=== PATIENT | female | born 1950 | race African-American/Black ===

== ENCOUNTER 2017-11-04 04:17 | Observation (INO) | payer MEDICARE, MEDICAID ==
[2017-11-04 04:57] LABS: #Lymphocytes 0.3 thou/uL (1.20-3.40); #Monocytes 0.2 thou/uL (0.11-0.59); #Neutrophils 3.3 thou/uL (1.40-6.50); %Basophils 0.2 % (0.0-1.0); %Eosinophils 0.7 % (0.0-10.0); %Lymphocytes 7.1 % (21.0-51.0); %Monocytes 5.9 % (0.0-10.0); %Neutrophils 86.2 % (42.0-75.0); Hemoglobin 10.8 g/dL (12.0-16.0); Mean Corpuscular HGB CONC 31.6 g/dL (32.0-36.0); Mean Corpuscular Hemoglobin 25.4 pg (27.0-31.0); Mean Corpuscular Volume 80.2 fl (81.0-99.0); Mean Platelet Volume 8.5 fL (7.4-10.4); Platelet Count 147 thou/uL (130-400); RBC Distribution Width 16.1 % (11.5-14.5); Red Blood Cell (RBC) Count 4.24 mill/uL (4.20-5.40); White Blood Cell (WBC) Count 3.9 thou/uL (4.8-10.8)
[2017-11-04 05:19] LABS: ALT (SGPT) 11 U/L (8-55); AST (SGOT) 11 U/L (5-34); Albumin 4.3 g/dL (3.4-4.8); Alkaline Phosphatase 181 U/L (40-150); Anion Gap 13 mmol/L (10-20); BUN (Urea Nitrogen) 54 mg/dL (9.8-20.1); Bilirubin, Total 0.8 mg/dL (0.2-1.2); Calc. Creatinine Clearance 0 mL/min (70-130); Calcium 9.3 mg/dL (7.8-10.44); Carbon Dioxide 26 mmol/L (23-31); Chloride 104 mmol/L (98-107); Estimated GFR-MDRD 5; Globulin 3.2 g/dL (2.4-3.5); Potassium 4.2 mmol/L (3.5-5.1); Protein, Total 7.5 g/dL (6.0-8.3); Sodium 139 mmol/L (136-145)
[2017-11-04 05:23] LABS: Glucose 48 mg/dL (80-115)
[2017-11-04 06:01] LABS: CKMB 2.6 ng/mL (0-6.6); Troponin I 0.059 ng/mL (< 0.028)
[2017-11-04] MEDS ORDERED: Dextrose 50% Abboject 50 ML SYRINGE ONE ×3 (06:21→09:41)
[2017-11-04] MEDS ORDERED: cloNIDine 0.3 MG TAB PO ONE (07:30)
[2017-11-04] MEDS ORDERED: Amlodipine 10 MG TAB PO PRN (07:31)
--- NOTE | 2017-11-04 07:32 | RAD ---
2 VIEWS CHEST: Date: 11/04/17 COMPARISON: 09/20/13. HISTORY: CHF. Patient is a dialysis patient. Dyspnea. FINDINGS: Two views of the chest show a cardiomediastinal silhouette which is upper limits of normal in size. M ultifocal opacities are seen in the lungs which may represent pulmonary edema or multifocal infiltrat es. A stent is seen in the right subclavian region. The previously seen MediPort has been removed. A stent is also seen in the proximal right arm. IMPRESSION: Multifocal opacities may represent pulmonary edema or multifocal infiltrates. POS: [facility]
[2017-11-04] MEDS ORDERED: cloNIDine 0.1 MG TAB ONE (07:38)
--- NOTE | 2017-11-04 08:28 | HP ---
PRIMARY CARE PHYSICIAN: Bria Wilson M.D. CHIEF COMPLAINT: Shortness of breath and low blood sugar. HISTORY OF PRESENT ILLNESS: Ms. Porter is a very pleasant 67-year-old female that has a history of e nd-stage renal disease, diabetes mellitus as well as invasive ductal carcinoma of the breast. She wa s in dialysis yesterday when her blood sugar dropped in the 40s and the dialysis was stopped and she was sent over to the emergency room to have this treated. She was given an amp of D50 and her blood sugars improved and she was then sent home. However, she was unable to go back to dialysis and as a result she started getting short of breath later on that day and had to come back to the emergency ro om once again where she was found to be volume overloaded and her blood sugar again was low and for t his reason she is being placed in observation. Currently, she does not have any complaints. She say s that her blood sugars usually had been okay, but lately they have been running lower. She does adm it that she is not sure how much to eat because she is always afraid that she going to get either vol ume overloaded or have trouble with her dialysis. She says she has lost about 10 pounds in the last couple of months. She also takes glyburide and she says she has been on this "for a long time" ever since she has been diabetic and that has been for at least 20 years or more. She denies feeling sick , such as fevers, chills, nausea or vomiting, but says she has had a cough and shortness of breath, b ut otherwise she has been okay. REVIEW OF SYSTEMS: CONSTITUTIONAL: She denies any fevers, chills, no night sweats, no weight loss. HEENT: She denies any headaches, no dizziness, no visual changes, no sore throat, rhinorrhea, neck pain, no adenopathy. PULMONARY: No hemoptysis, no cough, no wheezing. CARDIOVASCULAR: She denies any chest pain, no shortness of breath, no PND, no orthopnea. GASTROINTESTINAL: No abdominal pain, no nausea, no vomiting, no change in bowels. GENITOURINARY: No urinary frequency, hematuria, no hes itancy. NEUROLOGIC: No focal weakness, numbness, no seizures. PSYCHIATRIC: No symptoms of anxiety or depression. SKIN AND INTEGUMENT: No skin changes. No rash. PAST MEDICAL HISTORY: Significant for invasive ductal cell carcinoma, end-stage renal disease on hem odialysis, diabetes mellitus type 2, hypertension, and congestive heart failure. PAST SURGICAL HISTORY: She has had left mastectomy, MediPort placed, left oophorectomy, hysterectomy , dialysis catheter placed in the right arm fistula. ALLERGIES: To CODEINE, PENICILLIN, and MORPHINE. SOCIAL HISTORY: She is a nonsmoker and nondrinker. She is , has 5 children. She lives wit h 2 of her daughters. FAMILY HISTORY: No history of any inheritable diseases. CURRENT MEDICATIONS: Include clonidine 0.3 mg daily, minoxidil 2.5 mg daily, alprazolam 0.25 mg twic e a day, Sensipar 60 mg daily, amlodipine 10 mg daily, glyburide 5 mg daily, losartan 100 mg once a d ay, simvastatin 40 mg daily, Renagel 800 mg 3 times a day. PHYSICAL EXAMINATION: GENERAL: She is alert and oriented. She appears to be in no acute distress. VITAL SIGNS: Blood pressure was 223/78, heart rate 86, respiratory rate of 18, temperature is 98.6. HEENT: Her pupils are equal, round, and reactive. Extraocular muscles are intact. Her sclerae are anicteric. Throat: There is no erythema, no exudates. NECK: No adenopathy, no bruits. LUNGS: Clear except for some rales in the left lung martins. No rhonchi. CARDIOVASCULAR: She has a normal S1 and S2. I did not appreciate an S3 or S4. She did have a sligh t grade 2/6 systolic murmur. ABDOMEN: Obese, soft, nontender, and nondistended. Positive bowel sounds. EXTREMITIES: There is no edema. NEUROLOGIC: Neurologically, the exam is nonfocal. LABORATORY DATA AND IMAGING DATA: Sodium is 139, potassium 4.2, chloride is 104, CO2 is 26, BUN 54, creatinine 9.5, glucose is 48, and creatine kinase is 181. Her white blood cell count 3.9, hemoglobi n 10.8, hematocrit is 34, platelet count is 147. She had an EKG which was sinus rhythm. The rate wa s [address] wave changes. Chest x-ray showed some increasing pulmonary vascular ma rkings. ASSESSMENT AND PLAN: This is a pleasant 67-year-old female who presents to the emergency room with v olume overload likely due to incomplete dialysis. She will be placed in observation. Dr. Arizmendi has al ready been contacted and she will be dialyzed early this morning. 1. Hypoglycemia in the setting of diabetes mellitus and end-stage renal disease. The patient has be en on glyburide for years; however, this is not an ideal medication and patient is on dialysis with a dvanced renal insufficiency, we will take her off of glyburide and monitor her blood glucoses. I campos pect that she may only need sliding scale insulin in order to control her blood glucose. She says th at her vision is well enough that she can see letters and numbers and so therefore we will teach her how to use insulin and likely she can be discharged with a sliding scale. 2. Hypertension. Her blood pressure is currently uncontrolled, possibly because she may have missed the medication as she has been in the emergency room off and on for the last 24 hours or so. She guevara s been given clonidine now as well as Procardia and the plan again is for her to go to urgent dialysi s.
[2017-11-04] MEDS ORDERED: Amlodipine 5 MG TAB ONE (08:37)
[2017-11-04] MEDS ORDERED: Ondansetron ODT 4 MG TAB PO PRN (10:20)
[2017-11-04] MEDS ORDERED: Ondansetron HCl/PF 4 MG/2 ML Vial IVP PRN (10:20)
[2017-11-04] MEDS ORDERED: Acetaminophen 325 MG TAB PO PRN ×2 (10:21→10:33)
[2017-11-04] MEDS ORDERED: Dextrose 50% Abboject 50 ML SYRINGE SLOW IVP PRN (10:33)
[2017-11-04] MEDS ORDERED: HumaLOG 300 UNITS/3 ML VIAL SC PRN (10:33)
[2017-11-04] MEDS ORDERED: Dextrose 5% in Water 1,000 ML IV PRN (10:33)
[2017-11-04] MEDS ORDERED: Heparin 5,000 UNITS/ML VIAL SC SCH (10:45)
--- NOTE | 2017-11-04 13:26 | CON ---
DATE OF CONSULTATION: 11/04/2017 SERVICE: Renal Medicine. HISTORY OF PRESENT ILLNESS: Ms. Porter is a 67-year-old black female with known history of end-stage renal disease - on maintenance hemodialysis and admitted for hypoglycemia and shortness of breath. She was also at the ER yesterday for hypoglycemia. However, the hypoglycemia remained persistent, an d for that reason, she is being admitted. She was also found to be in CHF. We are now being consult ed for emergent dialysis. She is currently undergoing hemodialysis. I am at the bedside supervising her dialysis. We are attempting around 3-4 liters of fluid removal. REVIEW OF SYSTEMS: Positive for generalized malaise. Positive for shortness of breath. No nausea, no vomiting, no syncopal episode, no productive cough, no fever or chills. No gross hematuria. No d ysuria, no urinary frequency, no abdominal pain, no headache, no joint pains, no new skin rash. Appe tite and energy level is fair. No diplopia, no sore throat, no fever or chills, no chest pain. MEDICATIONS: Currently on, 1. P.r.n. D50. 2. Insulin, Humalog sliding scale. 3. Zofran 4 mg IV b.i.d. as needed. 4. Amlodipine 10 mg tab once a day. 5. Clonidine 0.3 mg p.o. b.i.d. 6. Minoxidil 2.5 mg tab q.a.m. PAST MEDICAL HISTORY: 1. The patient has history of ESRD - currently on maintenance hemodialysis. 2. Hypertensive nephropathy. 3. Longstanding hypertension. 4. History of chronic anemia from chronic renal disease. 5. History of type 2 diabetes mellitus. 6. Status post CHF. 7. History of ductal cell carcinoma - breast - in remission. PAST SURGICAL HISTORY: 1. Status post left mastectomy. 2. Status post left breast biopsy. 3. Status post MediPort placement. 4. Status post hysterectomy. 5. Status post oophorectomy. 6. Status post dialysis catheter placement. 7. Status post AV fistula placement. ALLERGIES: CODEINE, PENICILLIN, and MORPHINE. TRAUMA: None. IMMUNIZATIONS: Up-to-date. HOSPITALIZATIONS: Please see past medical history. SOCIAL HISTORY: The patient lives in [place]. No history of smoking. No alcohol. Status post blood transfusion. Five children. She lives with 1 of her children. FAMILY HISTORY: No family history of ESRD. TRAUMA: None. PHYSICAL EXAMINATION: VITAL SIGNS: Blood pressure is noted at 190/85, heart rate 79, respiratory rate 18, temperature 98. GENERAL EXAM: Awake, alert, supine, comfortable, not in distress. SKIN: Adequate turgor. HEENT: Slightly pale conjunctivae, anicteric sclerae. NECK: No neck mass, no carotid bruits, no JVD. CHEST: No deformities. LUNGS: Decreased breath sounds. HEART: Normal sinus rhythm. No murmur, no gallops, no rubs. ABDOMEN: Globular, soft, nontender. No masses. EXTREMITIES: No edema, no deformities. LABORATORY DATA: 11/04/2017, white count 3.9, hemoglobin 10.8. Sodium 139, potassium 4.2, chloride 104, carbon dioxide 26, BUN 54, creatinine 9.5, glucose 48 and repeat 68, AST 11, ALT 11, troponin I 0.059, albumin 4.3. Chest x-ray of 11/04/2017 shows evidence of CHF. ASSESSMENT AND PLAN: 1. Congestive heart failure - emergent hemodialysis. Attempting 3 to 4 liters of fluid removal as t olerated. Patient being ruled out for myocardial infarction. 2. End-stage renal disease, stable. We will continue current Friday, Friday, Friday dialysis. I reviewed her last Kt/V and it suggests she is adequately dialyzed with the current dialysis regimen. 3. Borderline anemia - continue to observe. Start Epogen once hemoglobin is less than 10. 4. Hypoglycemia, unclear etiology. Continue to observe. Patient on p.r.n. D50. Advised to increas e her p.o. intake.
[2017-11-04] MEDS: Heparin 5,000 UNITS/ML VIAL SC SCH ×2 (15:56→20:24)
[2017-11-04] MEDS: Labetalol HCl 100 MG/20 ML VIAL SLOW IVP PRN (15:57)
[2017-11-04] MEDS: cloNIDine 0.3 MG TAB PO SCH (20:18)
[2017-11-04] MEDS: Minoxidil 10 MG TAB PO SCH (20:18)
[2017-11-04] MEDS: ALPRAZolam 0.5 MG TAB PO PRN (20:20)
[2017-11-04] MEDS ORDERED: Simvastatin 40 MG TAB PO SCH (21:00)
[2017-11-04] MEDS ORDERED: Losartan 25 MG TAB PO SCH (21:00)
[2017-11-05] MEDS: Labetalol HCl 100 MG/20 ML VIAL SLOW IVP PRN ×2 (02:12→06:10)
[2017-11-05] MEDS ORDERED: hydrALAZINE 20 MG/ML VIAL SLOW IVP SCH (04:45)
[2017-11-05] MEDS: ALPRAZolam 0.5 MG TAB PO PRN (08:32)
[2017-11-05] MEDS: cloNIDine 0.3 MG TAB PO SCH (08:32)
[2017-11-05] MEDS: Heparin 5,000 UNITS/ML VIAL SC SCH ×2 (08:32→16:09)
[2017-11-05] MEDS: Minoxidil 10 MG TAB PO SCH (08:33)
[2017-11-05] MEDS ORDERED: Amlodipine 10 MG TAB PO SCH (09:00)
--- NOTE | 2017-11-05 09:33 | PRG ---
DATE OF SERVICE: 11/05/2017 RENAL MEDICINE SUBJECTIVE: Ms. Porter is a 67-year-old black female with ESRD and was admitted for hypoglycemia. S he was also found to be in CHF. For that reason, she underwent emergent hemodialysis yesterday. Thi s morning, she is feeling better. Blood sugars improved. Shortness of breath has also improved. I will schedule her for regular Friday, Friday, and Friday dialysis today. No other complaints. PHYSICAL EXAMINATION: VITAL SIGNS: Blood pressure 201/80, heart rate 77, respiratory rate 20, temperature 98.5, pulse ox 9 6%. GENERAL: Noted to be awake, supine, comfortable, not in distress. SKIN: Adequate turgor. HEENT: Pinkish conjunctivae, anicteric sclerae. NECK: No neck mass, no carotid bruits, no JVD. CHEST: No deformities. LUNGS: Decreased breath sounds. HEART: Normal sinus rhythm. No murmurs, no gallops, no rubs. ABDOMEN: Globular, soft, nontender, no masses. EXTREMITIES: No edema, no deformities. MEDICATIONS: Medications of 11/05/2017 was reviewed. LABORATORY DATA: Laboratories of 11/04/2017; hemoglobin 10.8. On 11/05/2017, glucose is 87. ASSESSMENT AND PLAN: 1. Hypoglycemia, much improved. I have encouraged patient to increase her p.o. intake. She does guevara ve decreased appetite in the past. 2. End-stage renal disease, stable. We will continue current maintenance hemodialysis on Friday, , and Friday. Again max out fluid removal as tolerated by the patient. 3. Congestive heart failure, clinically improved. The patient underwent emergent hemodialysis yeste rd with significant fluid removal. Overall, agree with current management.
[2017-11-05 12:40] VITALS: BP 174/78; TEMP 98.9
[2017-11-05 14:01] LABS: #Eosinphils 0.1 thou/uL (0.0-0.7); #Lymphocytes 0.6 thou/uL (1.20-3.40); #Monocytes 0.3 thou/uL (0.11-0.59); %Basophils 0.7 % (0.0-1.0); %Eosinophils 2.9 % (0.0-10.0); %Lymphocytes 19.3 % (21.0-51.0); %Monocytes 9.6 % (0.0-10.0); %Neutrophils 67.7 % (42.0-75.0); Hemoglobin 10.1 g/dL (12.0-16.0); Mean Corpuscular HGB CONC 31.7 g/dL (32.0-36.0); Mean Corpuscular Hemoglobin 25.1 pg (27.0-31.0); Mean Platelet Volume 9.1 fL (7.4-10.4); Platelet Count 144 thou/uL (130-400); RBC Distribution Width 16.1 % (11.5-14.5); Red Blood Cell (RBC) Count 4.01 mill/uL (4.20-5.40); White Blood Cell (WBC) Count 2.9 thou/uL (4.8-10.8)
[2017-11-05 14:29] LABS: Anion Gap 11 mmol/L (10-20); BUN (Urea Nitrogen) 37 mg/dL (9.8-20.1); Calc. Creatinine Clearance 9 mL/min (70-130); Calcium 10.4 mg/dL (7.8-10.44); Carbon Dioxide 30 mmol/L (23-31); Chloride 103 mmol/L (98-107); Estimated GFR-MDRD 7; Glucose 121 mg/dL (80-115); Potassium 4.3 mmol/L (3.5-5.1); Sodium 140 mmol/L (136-145)
--- NOTE | 2017-11-05 20:41 | DIS ---
DATE OF ADMISSION: DATE OF DISCHARGE: 11/05/2017 CONDITION AT THE TIME OF DISCHARGE: Stable and improved. DISCHARGE DIAGNOSES: 1. Acute fluid overload due to missed hemodialysis. 2. Morbid obesity. 3. Hypertension. 4. Dyslipidemia. 5. Diabetes mellitus type 2. 6. History of invasive ductal breast carcinoma. 7. End-stage renal disease, on hemodialysis. 8. History of congestive heart failure and ischemic cardiomyopathy, status post automatic implantabl e cardioverter-defibrillator placement. PRIMARY CARE PHYSICIAN: Gumaor Wilson M.D. INHOUSE CONSULTATIONS: Nephrology, Dr. Arizmendi. PROCEDURES IN THE HOSPITAL: Hemodialysis emergently. HISTORY OF PRESENT ILLNESS: Ms. Porter is a pleasant 67-year-old Afro-Maltese female with past [facility] history of end-stage renal disease, who was brought in by family for shortness of breath and low blood sugar. The patient was found to have blood sugar in the 40s at the dialysis center and was tra nsferred home after receiving D50. She missed hemodialysis and started to have worsening shortness o f breath and was found to be in fluid overload upon presentation. Please see admission history and p hymiranda for further details. The patient was admitted and Nephrology was consulted and she underwent emergent dialysis. HOSPITAL COURSE: The patient underwent back to back hemodialysis yesterday and this morning as per Honey Arizmendi. Her hypoglycemia has resolved. She has been taken off of glyburide because of labile blood sugar. She has been started on Humalog per sliding scale and prescriptions were provided to the nasrin ent. PHYSICAL EXAMINATION: At the time of examination, this morning she is back to her baseline and eager to go home and that is before the second round of hemodialysis. VITAL SIGNS: This morning, temperature 98.9, pulse of 93, respirations 16, saturating 93% on room ai r, blood pressure 174/78. GENERAL: No acute distress. Awake, alert, and oriented x3. CHEST: Clear to auscultation without any wheezing, rales or rhonchi, some crackles noticed. Rate an d rhythm is regular without any murmur, rubs or gallops. EXTREMITIES: Free of any cyanosis, clubbing, or edema. Discharge plan was discussed with the patient who verbalized understanding. She has been cleared by Nephrology for discharge as well. She is going to follow up with her primary care physician and Neph rology in the outpatient setting.
--- NOTE | 2017-11-08 17:05 | EKG ---
Test Reason : SOB Blood Pressure : / mmHG Vent. Rate : 086 BPM Atrial Rate : 086 BPM P-R Int : 134 ms QRS Dur : 094 ms QT Int : 402 ms P-R-T Axes : 045 011 -38 degrees QTc Int : 481 ms Normal sinus rhythm Nonspecific ST and T wave abnormality Abnormal ECG Confirmed by KINGS SYKES D.O. ([id number]), film and video editor DEON BECK ([id number]) on 11/08/2017 5:04:34 PM Referred By: TRIAGE Confirmed By:KINGS SYKES D.O.
== END 2017-11-05 18:45 | disposition home or self-care (01) ==
LOC: ERS 04:17 → 2SW 08:01
PROVIDERS: ADMIT Internal Medicine Infectious Disease; ATTEND Internal Medicine Infectious Disease
DX: E87.70 Fluid overload, unspecified (principal); E66.01 Morbid (severe) obesity due to excess calories; E11.22 Type 2 diabetes mellitus with diabetic chronic kidney disease; I13.2 Hypertensive heart and chronic kidney disease with heart failure and with stage 5 chronic kidney disease, or end stage renal disease; I50.9 Heart failure, unspecified; N18.6 End stage renal disease; I25.5 Ischemic cardiomyopathy; Z90.12 Acquired absence of left breast and nipple; E11.649 Type 2 diabetes mellitus with hypoglycemia without coma; C50.912 Malignant neoplasm of unspecified site of left female breast; D63.1 Anemia in chronic kidney disease; Z99.2 Dependence on renal dialysis; Z79.4 Long term (current) use of insulin; Z79.899 Other long term (current) drug therapy; Z88.5 Allergy status to narcotic agent; Z88.0 Allergy status to penicillin; Z95.828 Presence of other vascular implants and grafts; Z95.810 Presence of automatic (implantable) cardiac defibrillator; Z90.710 Acquired absence of both cervix and uterus; Z90.721 Acquired absence of ovaries, unilateral
CPT/HCPCS: 71046; 80048; 80053; 82550; 82553; 82962 ×2; 83880; 84484; 85025 ×2; 93005; 96374; 96375 ×2; 96376 ×2; 99285; 99406; G0378; 36415; 36416; 90935; G0257; J0360; J1644

== ENCOUNTER 2019-07-19 08:58 | Outpatient (CLI) | payer MEDICARE, OTHER, MEDICAID ==
--- NOTE | 2019-07-19 10:14 | MMO ---
Right Breast MAMMO Unilat Diag DDI RT+INDIRA. CLINICAL HISTORY: Patient is 69 years old and is seen for screening. The patient has no family history of breast cancer. The patient has a history of Excisional biopsy procedure revealed lobular carinoma in situ (LCIS). in the right breast in June,. The patient has a history of left Mastectomy in 2012 - malignant, left Ultrasound Guided Core Biopsy in 2012 and left Stereotatic Biopsy in February, - benign. VIEWS: The views performed were: right craniocaudal with tomosynthesis; right mediolateral oblique with tomosynthesis; and right mediolateral with tomosynthesis. FILMS COMPARED: The present examination has been compared to prior imaging studies performed at [facility] on 01/19/2008 and 03/23/2012, and at [facility] on 01/05/2010 and 12/24/2012. This study has been interpreted with the assistance of computer-aided detection. MAMMOGRAM FINDINGS: There are scattered fibroglandular densities. Finding 1: There are benign appearing calcifications seen in the right breast. Finding 2: There is a post-surgical scar seen in the right breast. There are no suspicious masses, suspicious calcifications, or new areas of architectural distortion. IMPRESSION: THERE IS NO MAMMOGRAPHIC EVIDENCE OF MALIGNANCY. A ROUTINE FOLLOW-UP MAMMOGRAM IN 1 YEAR IS RECOMMENDED. THE RESULTS OF THIS EXAM WERE SENT TO THE PATIENT. ACR BI-RADS Category 2 - Benign finding MAMMOGRAPHY NOTE: 1. A negative mammogram report should not delay a biopsy if a dominant of clinically suspicious mass is present. 2. Approximately 10% to 15% of breast cancers are not detected by mammography. 3. Adenosis and dense breasts may obscure an underlying neoplasm. Reported by: ISAIAS MASON MD Electonically Signed: [id number]
--- NOTE | 2019-07-19 12:22 | BD ---
DEXA BONE DENSITY STUDY: Date: 07/19/19 HISTORY: Postmenopausal. FINDINGS: Lumbar Spine: BMD (g/cm2) L1 1.654 T-Score: +6.0 L2 1.737 T-Score: +6.4 L3 1.741 T-Score: +6.0 L4 1.540 T-Score: +4.4 Total 1.664 T-Score: +5.6 Left Femoral Neck: 1.017 T-Score: +1.5 Total Femur: 1.258 T-Score: +2.6 IMPRESSION: T-score thu are all within normal range. The bones are very sclerotic in appearance. This appears t o be a fairly diffuse appearance. It is most likely on the basis of renal osteodystrophy, much less l ikely to be related to metastatic disease given the very diffuse appearance. POS: [facility]
== END 2019-07-19 08:59 | disposition home or self-care (01) ==
LOC: BICMAMMO 08:58
PROVIDERS: ATTEND Internal Medicine
DX: Z13.820 Encounter for screening for osteoporosis (principal); Z85.3 Personal history of malignant neoplasm of breast; Z90.12 Acquired absence of left breast and nipple
CPT/HCPCS: 77065; 77080; G0279

== ENCOUNTER 2020-03-17 14:17 | Inpatient (IN) | payer MEDICARE, OTHER ==
[2020-03-17] MEDS ORDERED: Acetaminophen 500 MG TAB ONE (15:11)
[2020-03-17 15:47] LABS: #Lymphocytes 0.3 thou/uL (1.20-3.40); #Monocytes 0.2 thou/uL (0.11-0.59); #Neutrophils 1.6 thou/uL (1.40-6.50); %Basophils 1.6 % (0.0-1.0); %Eosinophils 0.2 % (0.0-10.0); %Lymphocytes 15.2 % (21.0-51.0); %Monocytes 8.7 % (0.0-10.0); %Neutrophils 74.4 % (42.0-75.0); Hemoglobin 7.7 g/dL (12.0-16.0); Mean Corpuscular Hemoglobin 27.1 pg (27.0-31.0); Mean Corpuscular Volume 82.1 fL (78.0-98.0); Mean Platelet Volume 9.1 fL (7.4-10.4); Platelet Count 136 thou/uL (130-400); RBC Distribution Width 15.6 % (11.5-14.5); Red Blood Cell (RBC) Count 2.84 mill/uL (4.20-5.40); White Blood Cell (WBC) Count 2.2 thou/uL (4.8-10.8)
--- NOTE | 2020-03-17 16:04 | RAD ---
PORTABLE CHEST: 03/17/20 PROVIDED CLINICAL HISTORY: Shortness Of breath. FINDINGS: Comparison 11/04/27. Cardiac silhouette remains enlarged. Right subclavian region vascular stent material is redemonstrate d. Prominence of the pulmonary vasculature is similar. There is patchy bilateral air space disease. T here is no pleural fluid or pneumothorax apparent. IMPRESSION: 1. Patchy bilateral air space disease, which may reflect pneumonia or edema. 2. Cardiomegaly. POS: [facility]
[2020-03-17 16:07] LABS: ALT (SGPT) 14 U/L (8-55); AST (SGOT) 18 U/L (5-34); Albumin 4.1 g/dL (3.4-4.8); Alkaline Phosphatase 141 U/L (40-110); Anion Gap 12 mmol/L (10-20); BUN (Urea Nitrogen) 15 mg/dL (9.8-20.1); Bilirubin, Total 0.8 mg/dL (0.2-1.2); Calc. Creatinine Clearance 0 mL/min (70-130); Calcium 9.3 mg/dL (7.8-10.44); Carbon Dioxide 33 mmol/L (23-31); Chloride 96 mmol/L (98-107); Estimated GFR-MDRD 11; Globulin 3.2 g/dL (2.4-3.5); Glucose 119 mg/dL (80-115); Potassium 3.3 mmol/L (3.5-5.1); Protein, Total 7.3 g/dL (6.0-8.3); Sodium 138 mmol/L (136-145)
[2020-03-17] MEDS ORDERED: Azithromycin 500 MG VIAL ONE (16:44)
[2020-03-17] MEDS ORDERED: Dexamethasone 10 MG/ML VIAL ONE (16:45)
[2020-03-17] MEDS ORDERED: Potassium Chloride 20 MEQ TAB ONE (16:45)
[2020-03-17] MEDS ORDERED: Acetaminophen 325 MG TAB PO PRN (17:32)
[2020-03-17] MEDS ORDERED: Senokot S 8.6-50 MG TAB PO PRN (17:32)
[2020-03-17] MEDS ORDERED: Dextrose 5% in Water 1,000 ML IV PRN (17:59)
[2020-03-17] MEDS ORDERED: Dextrose 50% Abboject 50 ML SYRINGE SLOW IVP PRN (17:59)
[2020-03-17] MEDS ORDERED: Insulin Regular 300 UNITS/3 ML VIAL SC PRN (17:59)
[2020-03-17] MEDS ORDERED: HumaLOG 300 UNITS/3 ML VIAL SC PRN ×2 (17:59→22:26)
[2020-03-17 19:28] VITALS: BMI 27.6
[2020-03-17 19:35] LABS: Troponin I 0.073 ng/mL (< 0.028)
--- NOTE | 2020-03-17 19:37 | HP ---
PRIMARY CARE PHYSICIAN: Dr. Wilson. CYANIDE FURNACE OPERATOR: Dr. Arizmnedi. CHIEF COMPLAINT: Fever and chills. HISTORY OF PRESENT ILLNESS: Ms. Porter is a very pleasant 70-year-old female with a past medical history pertinent for diabetes, type 2; hypertension; end-stage renal disease, gets dialysis on Friday, Friday, and Friday; hypertension; and congestive heart failure. She was in her normal state of health, when she went to dialysis today. Reports that she had severe chills. Reports that the dialysis area is usually chilly, but for whatever reason, it was colder than normal, early she felt it was. She reports that she came to the emergency room to get tested for COVID-19, recommendation of dialysis, and she was found to have 102.9 fever and was worked up further. She reports that she has had a mild cough. She denies fever at home, but she says she has had some chills and general malaise, but was not concerned. She reports that she just came in for a test and she did not quite understand why she was being admitted. ER physician told admitting doctor that the patient was hypoxic and was requiring at least 2 L nasal cannula to maintain 94%, although the ER record does not document this anywhere. She will be admitted to the telemetry unit for further management. REVIEW OF SYSTEMS: Reports chills. Denies fever. Reports malaise. Denies any abdominal pain. Does report cough, but denies any shortness of breath, any chest pain, abdominal pain, nausea, vomiting, or diarrhea. She denies being more edematous than normal. All systems are reviewed and negative unless mentioned in the HPI. PAST MEDICAL HISTORY: Pertinent for CHF; diabetes, type 2; hypertension; and end-stage renal disease, on dialysis. SURGICAL HISTORY: Hysterectomy, dialysis shunt, mastectomy, and left stent placement. PSYCHIATRIC HISTORY: Anxiety. SOCIAL HISTORY: She chews tobacco. She denies any alcohol or drug use. She lives at home with her family. KNOWN ALLERGIES: Ampicillin, codeine, morphine, and penicillins. MEDICATIONS: 1. Glyburide 10 mg p.o. b.i.d. 2. Alprazolam 0.25 mg p.o. b.i.d. 3. Simvastatin 40 mg p.o. once a day. 4. Losartan 100 mg p.o. once a day. 5. Amlodipine 10 mg p.o. once a day. 6. Sensipar 60 mg p.o. at bedtime. 7. Clonidine 0.3 mg p.o. once a day. 8. Minoxidil 5 mg p.o. b.i.d. These are the medications in the ER system and still need to be verified as it looks like in the [employer] system, we took her off the glyburide on her last visit. PHYSICAL EXAMINATION: VITAL SIGNS: Blood pressure 145/56, pulse is 99, respiratory rate is 20, temperature is 102.3, and pO2 sats are 96% on room air. CONSTITUTIONAL: The patient is nontoxic appearing. She is alert and oriented to person, place, and time. HEENT: Head is atraumatic and normocephalic. Eyes, pupils are equally round and reactive to light. Sclerae are normal. ENT; mouth exam is normal. Mucous membranes are moist. NECK: Normal range of motion. Trachea is midline. RESPIRATORY/CHEST: Breath sounds are clear. Chest expansion is equal. CARDIOVASCULAR: Normal S1, S2. Grade 2/6 systolic murmur. ABDOMEN: Soft, nontender. Positive bowel signs. EXTREMITIES: No edema is noted. Pulses are equal and normal upper and lower. NEUROLOGICAL: Nonfocal. LABORATORY DATA: White blood cell count is 2.2, hemoglobin is 7.7, hematocrit is 23.3, and platelet count is 136. Chemistry; potassium 3.3, sodium 138, chloride 96, carbon dioxide 33, gap is 12, BUN is 15, creatinine is 4.65, GFR is 11, and glucose is 119. Lactic acid is 1.3. Liver enzymes are unremarkable with the exception of alkaline phosphatase, which is 141. The patient does have a positive COVID-19 test. ASSESSMENT AND PLAN: 1. Possible hypoxia due to COVID-19, end-stage renal with congestive heart failure. We will place on the telemetry unit. Oxygen as needed to maintain 92% on room air. Tylenol for fever as needed. We started Levaquin in the emergency room, we will continue at least one more dose. 2. Dexamethasone was started in the ER, we will continue as [address] Shaikh to consult for pending CRP, ferritin, and D-dimer at the current time. 3. End-stage renal disease with dialysis on Friday, Friday, and Friday. We will let Dr. Arizmendi know that the patient is here. She said that she completed her dialysis today as scheduled on Friday, so her next dialysis will be due on Friday. 4. Diabetes, type 2. We will add sliding scale, Accu-Cheks a.c. and at bedtime. 5. Hypertension. We will restart home medications once reconciled. 6. Hyperlipidemia. We will restart her home medications once reconciled. 7. Dr. Carl discussed case with me and agrees with plan. 8. Hospital course is dependent on clinical findings. Job ID: [id number]
[2020-03-17 22:33] LABS: Troponin I 0.074 ng/mL (< 0.028)
[2020-03-17] MEDS ORDERED: Minoxidil 10 MG TAB PO SCH (22:45)
[2020-03-17] MEDS: Heparin 5,000 UNITS/ML VIAL SC SCH (22:55)
[2020-03-17] MEDS ORDERED: ALPRAZolam 0.5 MG TAB PO SCH (23:00)
[2020-03-18 05:02] LABS: #Lymphocytes 0.3 thou/uL (1.20-3.40); #Monocytes 0.1 thou/uL (0.11-0.59); #Neutrophils 1.6 thou/uL (1.40-6.50); %Basophils 0.5 % (0.0-1.0); %Eosinophils 0.1 % (0.0-10.0); %Lymphocytes 13.3 % (21.0-51.0); %Monocytes 2.8 % (0.0-10.0); %Neutrophils 83.3 % (42.0-75.0); Hemoglobin 9.5 g/dL (12.0-16.0); Mean Corpuscular HGB CONC 32.5 g/dL (32.0-36.0); Mean Corpuscular Hemoglobin 26.8 pg (27.0-31.0); Mean Corpuscular Volume 82.5 fL (78.0-98.0); Mean Platelet Volume 8.8 fL (7.4-10.4); Platelet Count 139 thou/uL (130-400); RBC Distribution Width 15.4 % (11.5-14.5); Red Blood Cell (RBC) Count 3.54 mill/uL (4.20-5.40)
[2020-03-18 05:22] LABS: ALT (SGPT) 16 U/L (8-55); AST (SGOT) 16 U/L (5-34); Albumin 4.4 g/dL (3.4-4.8); Alkaline Phosphatase 168 U/L (40-110); Anion Gap 15 mmol/L (10-20); BUN (Urea Nitrogen) 28 mg/dL (9.8-20.1); Bilirubin, Total 0.7 mg/dL (0.2-1.2); Calc. Creatinine Clearance 10 mL/min (70-130); Carbon Dioxide 30 mmol/L (23-31); Chloride 98 mmol/L (98-107); Estimated GFR-MDRD 9; Globulin 3.7 g/dL (2.4-3.5); Glucose 157 mg/dL (80-115); Potassium 4.1 mmol/L (3.5-5.1); Protein, Total 8.1 g/dL (6.0-8.3); Sodium 139 mmol/L (136-145)
[2020-03-18 05:58] LABS: Troponin I 0.054 ng/mL (< 0.028)
[2020-03-18] MEDS ORDERED: Dexamethasone 4 MG TAB PO SCH (08:00)
[2020-03-18] MEDS: Heparin 5,000 UNITS/ML VIAL SC SCH (08:53)
[2020-03-18] MEDS ORDERED: Amlodipine 10 MG TAB PO SCH (09:00)
[2020-03-18] MEDS ORDERED: Minoxidil 10 MG TAB PO SCH (09:00)
[2020-03-18] MEDS ORDERED: ALPRAZolam 0.5 MG TAB PO SCH (09:00)
[2020-03-18] MEDS ORDERED: cloNIDine 0.3 MG TAB PO SCH (09:00)
[2020-03-18 15:02] VITALS: BP 119/51; TEMP 98.6
[2020-03-18] MEDS ORDERED: Atorvastatin Calcium 10 MG TAB PO SCH (21:00)
[2020-03-18] MEDS ORDERED: Losartan 25 MG TAB PO SCH (21:00)
--- NOTE | 2020-03-18 21:40 | CON ---
DATE OF CONSULTATION: 03/18/2020 REASON FOR CONSULTATION: COVID pneumonia. HISTORY OF PRESENT ILLNESS: A 70-year-old with history of type 2 diabetes, end-stage renal disease on hemodialysis through an AV fistula, and cardiomyopathy, who developed fever 2 or 3 days before admission. Her daughter has been admitted with COVID pneumonia as well and she was diagnosed with positive COVID PCR on the day of admission. She is actually feeling well and denies any headaches. 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 No sore throat. No dyspnea. No cough at all. No sputum production. No abdominal pain or diarrhea. Little urinary output. No joint symptoms. No skin disorder. PAST MEDICAL HISTORY: Cardiomyopathy, type 2 diabetes, hypertension, end-stage renal disease, hysterectomy, and dialysis fistula placement. She had a mastectomy for management of breast cancer. SOCIAL HISTORY: Lives in [place] with daughter. Chews tobacco, but does not smoke. No alcoholic beverage use. ALLERGIES: AMPICILLIN AND MORPHINE. CURRENT MEDICATIONS: 1. Xanax. 2. Norvasc. 3. Lipitor. 4. Catapres. 5. Decadron. 6. Glucagon. 7. Heparin. 8. Insulin. 9. Levofloxacin. 10. Minoxidil. PHYSICAL EXAMINATION: VITAL SIGNS: T-max 99.1, BP 119/51, pulse 76, respirations 16, and O2 saturation 95. SKIN: Shows a fistula. She is otherwise with no lymphadenopathy. HEENT: She has evidence of bilateral symmetric pupillary reactions. Oral cavity with still quite a few teeth in place, quite a bit of decay. NECK: Supple. No jugular venous distention. LUNGS: With faint inspiratory crackles in the right base. No wheezing. HEART: S1 and S2. Regular rate. No S3 or S4. ABDOMEN: Soft, not distended or tender. No ascites. No bladder distention. EXTREMITIES: No joint inflammatory activity. Moves extremities equally. NEUROLOGIC: Nonfocal. LABORATORY STUDIES: Sodium 138 and creatinine 4.65. Liver profile with alkaline phosphatase 141 and albumin 4.1. D-dimer 2.16 and ferritin was 2200. CRP is 8.35. COVID positive. Chest x-ray, patchy bilateral airspace disease. She is currently on room air, had been on nasal cannula. She has a 95% saturations. ASSESSMENT: End-stage renal disease, type 2 diabetes, cardiomyopathy, and COVID pneumonia. DISCUSSION: The patient is early in the course of illness. She is not eligible for Remdesivir due to GFR. She is on Decadron already. Right now, she has mild illness, but there are risk factors for deterioration in the ensuing days. The options for management would be to continue Decadron for the usual duration or discontinue Decadron and monitor her. I would probably err on the side of continuation, since she already has elevated ferritin and CRP and has diffuse bilateral pneumonia. She could potentially deteriorate in next 48 hours, so I would probably not discharge her just yet. Her inflammatory markers trended down in next in the ensuing 24 to 48 hours, then she could be discharged. Otherwise, she is at high risk for readmission. Job ID: [id number] [facility]
--- NOTE | 2020-03-18 23:50 | DIS ---
DATE OF ADMISSION: 03/17/2020 DATE OF DISCHARGE: 03/18/2020 DISCHARGE DIAGNOSES: 1. COVID-19 infection. 2. End-stage renal disease, on dialysis. 3. Diabetes. 4. Hypertension. 5. Hyperlipidemia. HISTORY OF PRESENT ILLNESS: The patient is a 70-year-old female, who states she felt fine. She went to Dialysis and when she finished as she left, she had a chill. She therefore went to the drive-through COVID testing facility at the hospital, where apparently she was noted to be febrile and therefore referred into the emergency department for further evaluation. There, the patient was noted to have a white count of 2.2, hemoglobin of 7.7, BUN 15, creatinine 4.65. COVID rapid screen was performed and was positive. Chest x-ray revealed mild diffuse bilateral infiltrates. The patient was subsequently admitted as she apparently was needing oxygen a couple of liters to maintain sats at 93% to 94%. HOSPITAL COURSE: The patient was admitted to the hospital. She was started on a dose of Decadron. She was also given a dose of Levaquin IV for potential community-acquired type infection. However, over the following day, the patient had no recurrence of her fevers. She had no significant cough, no shortness of breath, and her vital signs remained stable. Her oxygen saturation remained 95% to 97% on room air. With that, the patient was felt to be stable for outpatient management as she appeared to have significant improvement far more than expected given her age, comorbidities, and the COVID-19 infection. The patient had a strong desire to discharge and given bed availability, it was felt this was the most appropriate course of action at this time. PHYSICAL EXAMINATION: VITAL SIGNS: At the time of discharge, temperature is 98.6 pulse 76, respirations 16, O2 saturation 95% to 97% on room air, BP 119/51 up to 181/78. GENERAL: She is awake, alert, oriented, pleasant, cooperative. HEART: Regular without murmurs. LUNGS: Revealed very fine right basilar infiltrate or right basilar rales, otherwise clear. ABDOMEN: Benign. EXTREMITIES: No edema. DISPOSITION: The patient is discharged to home. She is to continue with a renal diabetic diet. Her activity level is as tolerated. She is to continue to self isolate and she assures me that she will reasonably be able to do that at home. MEDICATIONS: Include: 1. Clonidine 0.3 mg b.i.d. 2. Minoxidil 10 mg b.i.d. 3. Amlodipine 10 mg daily. 4. Alprazolam 0.5 mg b.i.d. 5. Losartan 100 mg at bedtime. 6. Simvastatin 40 mg at bedtime. 7. Humalog 2 units subcu t.i.d. with meals. 8. Midodrine 10 mg every Friday, Friday, Friday on days of dialysis. The patient is to follow up with Dr. Wilson in 7 days. She will follow up with Dr. Arizmendi. Dr. Arizmendi was notified of the patient's COVID positive status and says that the dialysis center will call her in order to make arrangements for her have to appropriate isolated dialysis. The patient was counseled extensively regarding the fact that currently she appears to be quite stable and does not need hospitalization. However, it is not uncommon for patients to decompensate somewhere along the course of this infection and if her symptoms turn worse, then she should call her physician or return to the hospital as it is possible she could potentially require hospitalization at some later time of this infection. She expressed full understanding of that. Total time in discharge activities was greater than 30 minutes. Job ID: [id number]
[2020-03-20] MEDS ORDERED: Midodrine HCl 5 MG TAB PO SCH (09:00)
== END 2020-03-18 17:25 | disposition home or self-care (01) | DRG 177 ==
LOC: ERS 14:17 → ERHOLD 16:24 → 2SW 19:28
PROVIDERS: ADMIT Internal Medicine; ATTEND Internal Medicine
PROC: 8E0ZXY6 Isolation (ICD-10-PCS; principal; 2020-03-17)
DX: U07.1 COVID-19 (principal); N18.6 End stage renal disease; I13.2 Hypertensive heart and chronic kidney disease with heart failure and with stage 5 chronic kidney disease, or end stage renal disease; I42.9 Cardiomyopathy, unspecified; E78.5 Hyperlipidemia, unspecified; I50.9 Heart failure, unspecified; E11.22 Type 2 diabetes mellitus with diabetic chronic kidney disease; F41.9 Anxiety disorder, unspecified; F17.210 Nicotine dependence, cigarettes, uncomplicated; Z99.2 Dependence on renal dialysis; Z79.4 Long term (current) use of insulin; Z90.710 Acquired absence of both cervix and uterus; Z88.6 Allergy status to analgesic agent; Z88.1 Allergy status to other antibiotic agents; Z88.0 Allergy status to penicillin; Z88.8 Allergy status to other drugs, medicaments and biological substances
CPT/HCPCS: 36415; 36416; 71045; 80053; 82728; 83605; 84484; 85025; 85379; 86140; 87040; 93005; 94760; J0456; J1100; J1644; J1956; J8540; U0002

== ENCOUNTER 2020-07-21 08:43 | Outpatient (CLI) | payer MEDICARE, OTHER ==
--- NOTE | 2020-07-21 09:33 | MMO ---
Bilateral MAMMO Bilat Screen [facility]. CLINICAL HISTORY: Patient is 70 years old and is seen for screening. The patient has no family history of breast cancer. The patient has a history of Excisional biopsy procedure revealed lobular carinoma in situ (LCIS). in the right breast in June,. The patient has a history of right Excisional Biopsy in 2012 - benign, left Mastectomy in 2012 - malignant, left Ultrasound Guided Core Biopsy in 2012 and left Stereotatic Biopsy in February, - benign. VIEWS: The views performed were: right craniocaudal with tomosynthesis and right mediolateral oblique with tomosynthesis. FILMS COMPARED: The present examination has been compared to prior imaging studies performed at [facility] on 03/23/2012 and 07/19/2019, and at [facility] on 01/05/2010 and 12/24/2012. This study has been interpreted with the assistance of computer-aided detection. MAMMOGRAM FINDINGS: There are scattered fibroglandular densities. Finding 1: There are stable post operative changes seen in the right breast. Finding 2: There are stable benign appearing calcifications seen in the right breast. There are also vascular calcifications. There are no suspicious masses, suspicious calcifications, or new areas of architectural distortion. IMPRESSION: THERE IS NO MAMMOGRAPHIC EVIDENCE OF MALIGNANCY. A ROUTINE FOLLOW-UP MAMMOGRAM IN 1 YEAR IS RECOMMENDED. THE RESULTS OF THIS EXAM WERE SENT TO THE PATIENT. ACR BI-RADS Category 2 - Benign finding MAMMOGRAPHY NOTE: 1. A negative mammogram report should not delay a biopsy if a dominant of clinically suspicious mass is present. 2. Approximately 10% to 15% of breast cancers are not detected by mammography. 3. Adenosis and dense breasts may obscure an underlying neoplasm. Reported by: KIEL GRECO MD Electonically Signed: [id number]
== END 2020-07-21 08:44 | disposition home or self-care (01) ==
LOC: BICMAMMO 08:43
PROVIDERS: ATTEND Internal Medicine
DX: Z12.31 Encounter for screening mammogram for malignant neoplasm of breast (principal); Z85.3 Personal history of malignant neoplasm of breast; Z91.89 Other specified personal risk factors, not elsewhere classified; Z98.890 Other specified postprocedural states; Z90.12 Acquired absence of left breast and nipple
CPT/HCPCS: 77063; 77067

== ENCOUNTER 2020-12-25 08:55 | Outpatient (CLI) | payer MEDICARE, MEDICAID | END 2020-12-25 08:56 | disposition home or self-care (01) | LOC: BICRAD 08:55 | PROVIDERS: ATTEND Internal Medicine | DX: M54.5 Low back pain (principal); M53.3 Sacrococcygeal disorders, not elsewhere classified; G95.89 Other specified diseases of spinal cord | CPT/HCPCS: 72100; 72220 ==

== ENCOUNTER 2021-09-27 10:10 | Outpatient (CLI) | payer MEDICARE, OTHER | END 2021-09-27 10:11 | disposition home or self-care (01) | LOC: BICMAMMO 10:10 | PROVIDERS: ATTEND Internal Medicine Medical Oncology | DX: Z12.31 Encounter for screening mammogram for malignant neoplasm of breast (principal); Z13.820 Encounter for screening for osteoporosis; Z85.3 Personal history of malignant neoplasm of breast; Z91.89 Other specified personal risk factors, not elsewhere classified; Z90.12 Acquired absence of left breast and nipple; T38.6X5A Adverse effect of antigonadotrophins, antiestrogens, antiandrogens, not elsewhere classified, initial encounter | CPT/HCPCS: 77063; 77067; 77080 ==

== ENCOUNTER 2023-01-16 12:31 | Outpatient (CLI) | payer OTHER | END 2023-01-16 12:32 | disposition home or self-care (01) | LOC: BICMAMMO 12:31 | PROVIDERS: ATTEND Internal Medicine | DX: Z12.31 Encounter for screening mammogram for malignant neoplasm of breast (principal); R22.31 Localized swelling, mass and lump, right upper limb; Z85.3 Personal history of malignant neoplasm of breast; Z91.89 Other specified personal risk factors, not elsewhere classified; Z90.12 Acquired absence of left breast and nipple | CPT/HCPCS: 76999; 77063; 77067 ==

== ENCOUNTER 2023-03-06 08:27 | Day surgery (SDC) | payer OTHER ==
[2023-03-06] MEDS ORDERED: Lidocaine 1% PF 5 ML VIAL ONE (09:32)
[2023-03-06] MEDS ORDERED: Sodium Bicarbonate 2.5 MEQ/5 ML VIAL ONE (09:32)
[2023-03-06 10:28] VITALS: BP 156/54
== END 2023-03-06 10:30 | disposition home or self-care (01) ==
LOC: ULT 08:27 → EDBD 09:30 → ULT 10:30
PROVIDERS: ATTEND Internal Medicine Medical Oncology
DX: C50.412 Malignant neoplasm of upper-outer quadrant of left female breast (principal); R59.0 Localized enlarged lymph nodes; Z88.0 Allergy status to penicillin; Z88.6 Allergy status to analgesic agent
CPT/HCPCS: 38505; 88184; 88305; 88342